=== PATIENT | female | born 1975 | race Caucasian/White ===

== ENCOUNTER 2016-11-04 11:14 | Emergency (ER) | payer SELFPAY ==
[~2016-11-04] VITALS: Ht 165.1 cm; Wt 54.5 kg
[~2016-11-04 11:14] MED LIST: AMOXICILLIN875 MG PO; FLAGYL500 MG PO; LORTAB 5/500 501 TAB PO; MACROBID 1100 MG/CAP PO; MOTRIN 600600 MG/TAB PO; MULTI VITAMINS1 TAB PO; PRENATAL1 TA1 PO; SENOKOT S 50 MG1 TAB; SLOW FE45 MG PO; ZOFRAN ODT4 MG PO; ZYRTEC 10MG10 MG PO
[2016-11-04 11:20] VITALS: BP 117/60; TEMP 98.4
[2016-11-04] MEDS ORDERED: AMOXICILLIN875 MG PO (12:27)
[2016-11-04 12:33] VITALS: PULSE 84
== END 2016-11-04 12:35 | disposition home or self-care (01) ==
LOC: COL.ER 11:14
DX: J32.9 Chronic sinusitis, unspecified (principal)

== ENCOUNTER → 2018-07-01 | Outpatient (CLI) | payer SELFPAY | LOC: COL.RAD 14:24 | DX: S00.03XA Contusion of scalp, initial encounter (principal); H53.8 Other visual disturbances; S06.0X9A Concussion with loss of consciousness of unspecified duration, initial encounter ==

== ENCOUNTER 2018-08-23 18:46 | Emergency (ER) | payer SELFPAY ==
[~2018-08-23] VITALS: Ht 165.1 cm; Wt 57.3 kg
[2018-08-23 18:49] VITALS: BP 128/74; TEMP 98.1
[2018-08-23 19:23] LABS: BASO # 0.1 (0.0-0.2); BASO % 0.8 % (0.0-2.0); EOS # 0.3 (0.0-0.7); EOS % 2.6 % (0-4.0); GRAN # 6.4 (1.4-6.5); GRAN % 66.1 % (42.2-75.2); HEMOGLOBIN 10.2 g/dl (12.5-16.0); LYMPH # 2.1 (1.2-3.4); LYMPH % 21.8 % (20.0-51.0); MEAN CELL VOLUME 83 fl (80.0-100.0); MEAN CORPUSCULAR HEMOGLOBIN 26 pg (27.0-31.0); MEAN CORPUSCULAR HGB CONC 31 g/dl (33.0-37.0); MEAN PLATELET VOLUME 9.8 fl (7.4-10.4); MONO # 0.8 (0.1-0.6); MONO % 8.4 % (1.7-9.3); PLATELET COUNT 289 K/mm3 (130-400); RED BLOOD COUNT 3.93 M/mm3 (4.10-5.30); REDCELL DISTRIBUTION WIDTH-CV 14.7 % (11.5-14.5)
[2018-08-23 19:26] LABS: HEMATOCRIT 32.6 % (37.0-47.0)
[2018-08-23 19:35] LABS: ALANINE AMINOTRANSFERASE 22 U/L (9-52); ALBUMIN 4.2 gm/dL (3.5-5.0); ALKALINE PHOSPHATASE 73 U/L (50-136); ANION GAP 7 mmol/L (7-16); AST,SGOT 23 U/L (15-37); BILIRUBIN,TOTAL < 0.1 mg/dL (0.0-1.0); BLOOD UREA NITROGEN 11 mg/dL (7-17); CALCIUM 8.8 mg/dL (8.4-10.2); CARBON DIOXIDE 28 mmol/L (22-30); CHLORIDE 105 mmol/L (98-107); CREATININE, serum 0.55 mg/dL (0.52-1.25); GLUCOSE 70 mg/dL (74-106); LIPASE 96 U/L (23-300); POTASSIUM 3.7 mmol/L (3.4-5.0); SODIUM 139 mmol/L (137-145); TOTAL PROTEIN 7.4 gm/dL (6.4-8.2)
[2018-08-23 19:37] LABS: C-REACTIVE PROTEIN < 0.5 mg/dL (0.0-0.9)
[2018-08-23 19:46] LABS: TROPONIN-I < 0.012 ng/mL (0.000-0.035)
[2018-08-23 20:58] VITALS: PULSE 72
== END 2018-08-23 21:01 | disposition home or self-care (01) ==
LOC: COL.ER 18:46
PROVIDERS: Emergency Medicine
DX: R07.9 Chest pain, unspecified (principal)

== ENCOUNTER → 2019-02-08 | Outpatient (CLI) | payer BC | LOC: MC.RAD 16:34 | DX: Z12.31 Encounter for screening mammogram for malignant neoplasm of breast (principal) ==

== ENCOUNTER 2021-06-03 08:16 | Day surgery (SDC) | payer BC ==
[~2021-06-03] VITALS: Ht 165.1 cm; Wt 65.2 kg
[2021-06-03] MEDS ORDERED: ZEBETA 5MG5 MG PO (08:41)
[2021-06-03] MEDS ORDERED: DESYREL 50MG50 MG PO (08:42)
[2021-06-03] MEDS ORDERED: PROTONIX 40MG T40 MG PO (08:42)
[2021-06-03] MEDS ORDERED: TYLENOL 500MG500 MG PO (08:43)
[2021-06-03] MEDS ORDERED: ZYRTEC 10MG10 MG PO (08:43)
[2021-06-03] MEDS ORDERED: MAG-OX 400400 MG/TAB PO (08:44)
[2021-06-03] MEDS ORDERED: FERROUS SU325 MG/TAB PO (08:44)
[2021-06-03] MEDS ORDERED: COMPLETE MULTI1 TAB PO (08:45)
[2021-06-03 09:03] VITALS: BP 110/80; PULSE 56; TEMP 97.1
[2021-06-03 09:50] VITALS: BP 101/67; PULSE 62
[2021-06-03 10:05] VITALS: BP 116/78; PULSE 60; TEMP 97
[2021-06-03 10:20] VITALS: BP 105/82; PULSE 77
--- NOTE | 2021-06-03 10:27 | NUR ---
0969- Pt returns from endo procedure via cart to [facility]. Pt ambulates from cart to recliner with RN assist. Monitors on and alarms set. Call light within reach. Pt alert and oriented. Pt requests water only, refused all offered food options and continues to state "I'm just not hungry". Pt denies any pain or nausea. 1005- Pt taking drink well. No complications noted. Pt mother called for ride home. 1020- Discharge instructions given to pt. All questions answered to pt satisfaction. Handed to pt education material and discharge information. 1027- Pt transferred out of the hospital via wheelchair, to private vehicle driven by mother.
== END 2021-06-03 10:27 | disposition home or self-care (01) ==
LOC: SDCO 08:16
DX: R10.11 Right upper quadrant pain (principal); R11.2 Nausea with vomiting, unspecified; R11.0 Nausea; J30.9 Allergic rhinitis, unspecified; D64.9 Anemia, unspecified; E05.90 Thyrotoxicosis, unspecified without thyrotoxic crisis or storm; M79.621 Pain in right upper arm; Z79.899 Other long term (current) drug therapy; Z87.891 Personal history of nicotine dependence; Z82.49 Family history of ischemic heart disease and other diseases of the circulatory system; Z83.3 Family history of diabetes mellitus; Z80.1 Family history of malignant neoplasm of trachea, bronchus and lung
CPT/HCPCS: J2704; J7120